=== PATIENT | male | born 1995 | race Caucasian/White ===

== ENCOUNTER 2016-12-12 18:18 | Emergency (ER) | payer MEDICAID, OTHER ==
[~2016-12-12] VITALS: Ht 170.2 cm; Wt 72.7 kg
[2016-12-12 18:28] VITALS: BP 146/74
== END 2016-12-12 20:52 | disposition home or self-care (01) ==
LOC: M ED 18:18
DX: Z59.9 Problem related to housing and economic circumstances, unspecified (principal); Z60.9 Problem related to social environment, unspecified; F90.9 Attention-deficit hyperactivity disorder, unspecified type